=== PATIENT | male | born 1960 | race Hispanic/Latino ===

== ENCOUNTER 2020-10-30 07:40 | Emergency (ER) | payer SELFPAY ==
--- NOTE | ~2020-10-30 | CT_ITS ---
EXAMINATION: CT abdomen pelvis w con DATE: 10/30/2020 08:37 INDICATION: Nausea, vomiting and diarrhea TECHNIQUE: Computed tomography (CT) of the abdomen and pelvis was performed with 100 cc Omnipaque 350 intravenous contrast. The dose-length product was 589.02 mGy-cm. Automated exposure control and iter ative reconstruction technique were employed. COMPARISON: None. FINDINGS: Lung bases are unremarkable. No significant pleural or pericardial effusion. No significant vascular abnormality. No lymphadenopathy. Fatty infiltration of the liver. The spleen, pancreas, adrenal glands and kidneys are unremarkable. S tudy limited by motion artifact. Gallbladder is present. Nonobstructive bowel gas pattern. There is d iffuse thickening of the colon, consistent with colitis, most likely infectious or inflammatory. Ther e is mild thickening and enhancement of the appendix which measures 9 mm. No significant periappendic eal infiltration. No free air or free fluid. IMPRESSION: 1. Diffuse abnormal thickening and enhancement of the colon, compatible with colitis, most likely inf ectious/inflammatory. Mildly thickened enhancing appendix is likely related to same etiology. No sign ificant surrounding periappendiceal inflammation is identified. 2: Hepatic steatosis. Reviewed, dictated and finalized at location B. IMPRESSION: 1. Diffuse abnormal thickening and enhancement of the colon, compatible with co litis, most likely infectious/inflammatory. Mildly thickened enhancing appendix is likely related to same etiology. No significant surrounding periappendiceal inflammation is identified. 2: Hepatic steatosis.
[2020-10-30 07:47] VITALS: BP 132/77; PULSE 98; RESP 18; TEMP 37.4; O2SAT 94
--- NOTE | 2020-10-30 08:05 | PC.NURSE ---
asked pt for urine sample and pt states he is unable to go right now and will try in a little bit.
[2020-10-30 08:07] LABS: Basophils Percent Auto 0.2 % (0.2-1.2); Eosinophils Percent Auto 0.3 % (0-4.4); Hematocrit 47.3 % (42.0-52.0); Hemoglobin 16.1 g/dL (14.0-18.0); Immature Granulocyte Absolute 0.07 K/mm3 (0.00-0.031); Immature Granulocyte Percent A 0.6 % (0-0.5); Lymphocytes Absolute Auto 1.39 K/mm3 (0.9-3.2); Lymphocytes Percent Auto 11.2 % (18.3-44.2); Mean Corpuscular Hemoglobin 32.7 pg (26-34); Mean Corpuscular Volume 96.1 fl (80-100); Mean Platelet Volume 9.5 fl (7.4-10.4); Monocytes Absolute Auto 0.6 K/mm3 (0.1-0.6); Monocytes Percent Auto 4.9 % (2.6-8.5); Neutrophils Absolute Auto 10.2 K/mm3 (1.3-6.7); Neutrophils Percent Auto 82.8 % (45.5-73.1); Platelet Count Result 212 k/mm3 (150-375); Red Blood Count 4.92 M/mm3 (4.6-6.20); White Blood Count 12.4 K/mm3 (4.5-10.0)
--- NOTE | 2020-10-30 08:15 | ED.NAVMDI ---
HPI - Nausea/Vomiting/Diarrhea General Chief complaint: Nausea/Vomiting/Diarrhea Stated complaint: vomiting, diarrhea Time Seen by Provider: 10/30/20 08:15 Source: patient, family and RN notes reviewed Mode of arrival: ambulatory Limitations: no limitations History of Present Illness HPI Narrative: Patient is 60 years old male brought to the emergency room by his and his daughter. The daughter speaks Bruneian. Is telling me that the patient been having nausea, vomiting and diarrhea since last night, on average 10 episodes each. She denies anybody else having similar symptoms. Patient did not get vaccinated for COVID-19 yet. Patient does not take medication at home, does not smoke or drink or uses drugs. She is telling me also that patient have some slight upper abdominal pain with vomiting Related Data Allergies Allergy/AdvReac Type Severity Reaction Status Date / Time No Known Allergies Allergy Verified 10/30/20 08:06 Review of Systems Review of Systems: Narrative: CONSTITUTIONAL: Denies fever, chills, or sweats. EYES: Denies visual changes, redness, or discharge. ENT: Denies rhinorrhea, congestion, sore throat, or otalgia. CARDIOVASCULAR: Denies chest pain, palpitations, or edema. RESPIRATORY: Denies cough or dyspnea. GASTROINTESTINAL: Denies abdominal pain, nausea, vomiting, or diarrhea. GENITOURINARY: Denies dysuria or hematuria. SKIN: Denies rash or itching. MUSCULOSKELETAL: Denies back pain, joint pain, or myalgia. NEUROLOGIC: Denies headache, numbness, or weakness. PSYCHIATRIC: Denies anxiety or depression. Exam Narrative: Exam Narrative: General appearance: Well-developed, well-nourished Skin: Normal color Head: Normocephalic, nontraumatic Eyes: Clear conjunctiva ENT: Oropharynx normal, ears normal, nose normal Neck: Supple, nontender Chest and respiratory: Airway patent, no respiratory distress, no accessory muscle use Heart: Regular rate/rhythm Abdomen: Soft, mild epigastric tenderness,, no organomegaly, quiet bowel sounds Vascular: Normal peripheral pulses, normal capillary refill. 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 Date: 10/30/20 Time: 11:28 Vital Signs Vital signs: Vital Signs Temperature 37.4 C 10/30/20 07:47 Pulse Rate 98 10/30/20 07:47 Respiratory Rate 18 10/30/20 07:47 Blood Pressure 132/77 10/30/20 07:47 Pulse Oximetry 94 10/30/20 07:47 Temperature 37.4 C 10/30/20 07:47 Pulse Rate 77 10/30/20 10:13 Respiratory Rate 16 10/30/20 10:13 Blood Pressure 118/74 10/30/20 10:13 Pulse Oximetry 100 10/30/20 10:13 MDM - Nausea/Vomiting/Diarrhea MDM Narrative Medical decision making narrative: Gastroenteritis is my concern. Labs, IV fluid, CT abdomen and pelvis with IV contrast ordered. Differential Diagnosis Differential diagnosis: Likely food poisoning, gastroenteritis and dehydration Lab Data Result diagrams: 10/30/20 07:59 10/30/20 07:59 Labs: Lab Results 10/30/20 10/30/20 10/30/20 Range/Units 07:59 07:59 08:43 WBC 12.4 H (4.5-10.0) K/mm3 RBC 4.92 (4.6-6.20) M/mm3 Hgb 16.1 (14.0-18.0) g/dL Hct 47.3 (42.0-52.0) % MCV 96.1 (80-100) fl MCH 32.7 (26-34) pg MCHC 34.0 (32-36) g/dl RDW 13.0 (11.5-14.5) % Plt Count 212 (150-375) k/mm3 MPV 9.5 (7.4-10.4) fl Immature Gran % (Auto) 0.6 H (0-0.5) % Neut % (Auto) 82.8 H (45.5-73.1) % Lymph % (Auto) 11.2 L (18.3-44.2)
[2020-10-30 08:18] LABS: Alanine Aminotransferase 113 U/L (4-50); Albumin Level 4.5 g/dL (3.5-5.1); Alkaline Phosphatase 113 U/L (38-126); Anion Gap 10 mmol/L (8-16); Aspartate Amino Transferase 98 U/L (17-59); Bilirubin,Total 1.4 mg/dL (0.2-1.3); Blood Urea Nitrogen 13 mg/dL (9-20); Calcium 9.4 mg/dL (8.4-10.2); Carbon Dioxide 24 mmol/L (22-30); Chloride 108 mmol/L (98-107); Estimated CRCL calculation 57 ml/min; Estimated Glomerular Filt Rate > 60; Glucose 149 mg/dL (75-110); Lipase 98 U/L (23-300); Potassium 3.5 mmol/L (3.4-5.0); Sodium 142 mmol/L (137-145)
[2020-10-30] MEDS: SODIUM CHLORIDE 0.9% IV 1,000 ML 999 ML IV CONT ×2 (08:41)
[2020-10-30] MEDS: ONDANSETRON INJ 4 MG/2 ML VIAL IV PUSH (08:41)
[2020-10-30 08:49] VITALS: BP 124/72; PULSE 87; RESP 15; O2SAT 99
[2020-10-30 08:56] LABS: Add Urine Microscopic? YES; Appearance Urine Cloudy (Clear); Bilirubin Urine Negative (Negative); Blood Urine 1+ (Negative); Color Urine Amber (Yellow); Glucose Urine UA Negative (Negative); Ketones Urine Negative (Negative); Leukocyte Esterase Ur Negative LEU/UL (Negative); Mucus Urine Heavy /lpf; Nitrate Urine Negative (Negative); Protein Urine 2+ mg/dL (Negative); Specific Grav Ur 1.027 (1.001-1.035); Squamous Epithelial Cell Urine Occasional /hpf (Few); Urobilinogen Urine Negative mg/dL (<2.0)
[2020-10-30 10:13] VITALS: BP 118/74; PULSE 77; RESP 16; O2SAT 100
[2020-10-30 11:15] VITALS: BP 120/75; PULSE 82; RESP 16; O2SAT 100
--- NOTE | 2020-10-30 11:16 | PC.NURSE ---
PO challenged pt and pt was able to keep water down.
[2020-10-30 11:41] VITALS: BP 115/78; PULSE 74; RESP 18; O2SAT 100
== END 2020-10-30 11:46 | disposition home or self-care (01) ==
PROVIDERS: Emergency Provider Emergency Medicine
DX: K52.9 Noninfective gastroenteritis and colitis, unspecified (principal)
CPT/HCPCS: 36415; 74177; 80053; 81001; 83690; 85025; 87086; 87088; 96361; 96374; 99284; J2405; J7030; Q9967

== ENCOUNTER 2022-08-20 18:04 | Emergency (ER) | payer MEDICAID, SELFPAY ==
[2022-08-20] VITALS (22 sets, daily range): BP systolic 101–124; BP diastolic 60–100; PULSE 59–75; RESP 9–21; TEMP 36.6; O2SAT 94–100
--- NOTE | ~2022-08-20 | XR_ITS ---
EXAMINATION: XR chest 2V DATE: 08/20/2022 19:13 INDICATION: Weakness TECHNIQUE: Frontal and lateral views of the chest are obtained COMPARISON: None available FINDINGS: The lungs are free of acute opacities. No pleural effusion or pneumothorax. The cardiomedia stinal silhouette is normal. There is moderate thoracic spondylosis. IMPRESSION: 1. No acute cardiopulmonary abnormality. Reviewed, dictated and finalized at location F.
--- NOTE | 2022-08-20 18:19 | ECG_ITS ---
Measurements Intervals [place] Rate: 72 P: 26 [place]: 196 QRS: -16 QRSD: 86 T: 13 QT: 383 QTc: 419 Interpretive Statements SINUS RHYTHM VOLTAGE CRITERIA FOR LVH [MEETS CRITERIA IN ONE OF: R(aVL), S(V1), R(V5), R(V5/V6)+S(V1)] NO PREVIOUS ECG AVAILABLE FOR COMPARISON Electronically Signed On 08-21-2022 22:10:37 CDT by Ninfa Caballero M.D.
[2022-08-20 18:35] LABS: Basophils Percent Auto 0.8 % (0.2-1.2); Eosinophils Absolute Auto 0.1 K/mm3 (0-0.3); Eosinophils Percent Auto 1.2 % (0-4.4); Hematocrit 41.3 % (42.0-52.0); Hemoglobin 14.3 g/dL (14.0-18.0); Immature Granulocyte Absolute 0.01 K/mm3 (0.00-0.031); Immature Granulocyte Percent A 0.2 % (0-0.5); Lymphocytes Absolute Auto 2.17 K/mm3 (0.9-3.2); Lymphocytes Percent Auto 42.8 % (18.3-44.2); Mean Corpuscular HGB Conc 34.6 g/dl (32-36); Mean Corpuscular Hemoglobin 33.3 pg (26-34); Mean Platelet Volume 11.1 fl (7.4-10.4); Monocytes Absolute Auto 0.4 K/mm3 (0.1-0.6); Monocytes Percent Auto 8.1 % (2.6-8.5); Neutrophils Absolute Auto 2.4 K/mm3 (1.3-6.7); Neutrophils Percent Auto 46.9 % (45.5-73.1); Platelet Count Result 170 k/mm3 (150-375); Red Cell Distribution Width 12.6 % (11.5-14.5); White Blood Count 5.1 K/mm3 (4.5-10.0)
[2022-08-20 18:53] LABS: Alanine Aminotransferase 134 U/L (6-50); Albumin Level 4.2 g/dL (3.5-5.1); Alkaline Phosphatase 274 U/L (38-126); Anion Gap 9 mmol/L (8-16); Aspartate Amino Transferase 107 U/L (17-59); Bilirubin,Total 1.4 mg/dL (0.2-1.3); Blood Urea Nitrogen 14 mg/dL (9-20); Calcium 8.5 mg/dL (8.4-10.2); Carbon Dioxide 26 mmol/L (22-30); Chloride 97 mmol/L (98-107); Estimated Glomerular Filt Rate > 60; Potassium 4.4 mmol/L (3.4-5.0); Sodium 132 mmol/L (137-145)
[2022-08-20 19:00] LABS: Glucose 653 mg/dL (65-110)
[2022-08-20 19:06] LABS: Appearance Urine Clear (Clear); Bilirubin Urine Negative (Negative); Blood Urine Negative (Negative); Color Urine Yellow (Yellow); Glucose Urine UA 3+ mg/dL (Negative); Ketones Urine Negative (Negative); Leukocyte Esterase Ur Negative LEU/UL (Negative); Nitrate Urine Negative (Negative); Protein Urine Negative (Negative); Urobilinogen Urine 0.2 mg/dL (<2.0)
[2022-08-20 19:08] LABS: Specific Grav Ur 1.039 (1.001-1.035)
[2022-08-20 19:09] LABS: Add Urine Microscopic? NO
--- NOTE | 2022-08-20 19:41 | PC.NURSE ---
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 Patient states he has had increased thirst, hunger, and urination for about eleven days. Patient states he also has heart burn when eating his normal spicy foods at home. Increased incontinence as well.
[2022-08-20] MEDS: SODIUM CHLORIDE 0.9% IV 1,000 ML 999 ML IV CONT ×2 (20:51→20:52)
--- NOTE | 2022-08-20 21:09 | ED.GENADULT ---
HPI - General Adult General Chief complaint: Weakness Stated complaint: abd pain Time Seen by Provider: 08/20/22 20:23 History of Present Illness HPI narrative: Patient 62-year-old gentleman who presents emergency department with chief complaint of polyuria polydipsia and decreased appetite. The patient reports that he has been thirsty all the time he has had urination has been frequent and reports that he is not really wanted to eat much. The patient states he feels just generally unwell and weak. Patient reports no prior medical issues patient denies fever denies vomiting denies abdominal pain. Related Data Allergies Allergy/AdvReac Type Severity Reaction Status Date / Time No Known Allergies Allergy Verified 10/30/20 08:06 Review of Systems Review of Systems: A 10 system review of systems was completed on the patient and is negative except for what is stated in the HPI. Nursing and ancillary documentation was reviewed. Exam Narrative: GENERAL: Well-appearing, well-nourished, and in no acute distress. HEAD: Normocephalic, atraumatic. EYES: PERRLA and EOMI. ENT: Nares clear, no rhinorrhea or epistaxis. Mucous membranes moist. NECK: Supple. CHEST: Clear to auscultation. No respiratory distress. HEART: Regular rate and rhythm. No murmur heard. Normal peripheral pulses. ABDOMEN: Soft, nontender, nondistended, normal active bowel sounds. EXTREMITIES: Normal range of motion. No edema. SKIN: Warm, dry, no rash. NEURO: No focal deficits. Alert and oriented x3. PSYCH: Normal mood and affect. Course Vital Signs Vital signs: Vital Signs Temperature 36.6 C 08/20/22 18:14 Pulse Rate 75 08/20/22 18:14 Respiratory Rate 16 08/20/22 18:14 Blood Pressure 118/70 08/20/22 18:14 Pulse Oximetry 97 08/20/22 18:14 Temperature 36.6 C 08/20/22 18:14 Pulse Rate 61 08/20/22 22:00 Respiratory Rate 19 08/20/22 22:00 Blood Pressure 101/77 08/20/22 21:16 Pulse Oximetry 98 08/20/22 22:00 Medical Decision Making [facility] Narrative Medical decision making narrative: Differential diagnosis includes diabetes, dehydration, diabetic ketoacidosis. Laboratory studies were obtained which showed normal CBC electrolytes showed a blood sugar of 653 there was no anion gap was 9 CO2 is 26. Patient received 2 L of normal saline and blood sugar came down into the 200s. Chest x-ray showed no evidence of focal infiltrate Patient is feeling much better after receiving IV fluids Patient will be started on metformin Vital Signs Vital Signs: Vital Signs Temperature 36.6 C 08/20/22 18:14 Pulse Rate 75 08/20/22 18:14 Respiratory Rate 16 08/20/22 18:14 Blood Pressure 118/70 08/20/22 18:14 Pulse Oximetry 97 08/20/22 18:14 Temperature 36.6 C 08/20/22 18:14 Pulse Rate 61 08/20/22 22:00 Respiratory Rate 19 08/20/22 22:00 Blood Pressure 101/77 08/20/22 21:16 Pulse Oximetry 98 08/20/22 22:00 Lab Data 08/20/22 18:25 08/20/22 18:25 Labs: Lab Results 08/20/22 08/20/22 08/20/22 Range/Units 18:25 18:25 18:28 WBC 5.1 (4.5-10.0) K/mm3 RBC 4.30 L (4.6-6.20) M/mm3 Hgb 14.3 (14.0-18.0) g/dL Hct 41.3 L (42.0-52.0) % MCV 96.0 (80-100) fl MCH 33.3 (26-34) pg MCHC 34.6 (32-36) g/dl RDW 12.6 (11.5-14.5) % Plt Count 170 (150-375) k/mm3 MPV 11.1 H (7.4-10.4) fl Immature Gran % (Auto) 0.2 (0-0.5) % Neut % (Auto) 46.9 (45.5-73.1) % Lymph % (Auto) 42.8 (18.3-44.2) % [place] % (Auto) 8.1 (2.6-8.5) % Eos % (Auto) 1.2 (0-4.4) % Baso % (Auto) 0.8 (0.2-1.2) % Lymph # (Auto) 2.17 (0.9-3.2) K/mm3 [place] # (Auto) 0.4 (0.1-0.6) K/mm3 Eos # (Auto) 0.1 (0-0.3) K/mm3 Baso # (Auto) 0.0 (0.0-0.1) K/mm3 Abs Immat Gran (auto) 0.01 (0.00-0.031) K/mm3 Absolute Neuts (auto) 2.4 (1.3-6.7) K/mm3 Absolute Nucleated RBC 0.0 (0.0-0.012) K/mm3 Nucleated RBC % 0.0
[2022-08-20 22:07] LABS: Glucose Point of Care 244 mg/dl (65-105)
== END 2022-08-20 23:04 | disposition home or self-care (01) ==
PROVIDERS: Emergency Medicine; Emergency Provider Emergency Medicine
DX: E11.65 Type 2 diabetes mellitus with hyperglycemia (principal)
CPT/HCPCS: 36415; 71046; 80053; 81003; 82948; 85025; 93005; 96360; 96361; 99283; J7030

== ENCOUNTER 2024-11-05 21:13 | Emergency (ER) | payer SELFPAY ==
--- NOTE | ~2024-11-05 | CT_ITS ---
CT of the Abdomen and Pelvis: Indication: Urinary frequency, weakness, transaminitis Technique: 2.5 mm axial scans were obtained through the abdomen and pelvis following intravenous adm inistration of 100 cc of Omnipaque 350. Dose reduction technique was used on this scan by utilizing a utomated exposure control and iterative reconstruction technique. The dose-length product (DLP) was 5 51.70 mGy-cm. Findings: Scans through the lung bases are unremarkable. There is diffuse hepatic steatosis. The spleen, pancreas, gallbladder, adrenals and kidneys are withi n normal limits. No evidence of aortic aneurysm. No lymphadenopathy. No bowel obstruction or bowel wall thickening. There is no evidence to suggest acute appendicitis. Images through the pelvis were performed. Urinary bladder unremarkable. Prostate gland is enlarged. N o ascites. Impression: Diffuse hepatic steatosis. Enlarged prostate gland. Reviewed, dictated and finalized at location . Impression: Diffuse hepatic steatosis. Enlarged prostate gland.
[2024-11-05 21:19] VITALS: BP 131/78; PULSE 71; RESP 18; TEMP 36.6; O2SAT 98
[2024-11-06] VITALS (23 sets, daily range): BP systolic 101–122; BP diastolic 72–85; PULSE 51–62; RESP 12–25; TEMP 36.5; O2SAT 96–100
[2024-11-06 00:33] LABS: Alanine Aminotransferase 174 U/L (6-50); Albumin Level 4.4 g/dL (3.5-5.1); Alkaline Phosphatase 154 U/L (38-126); Anion Gap 10 mmol/L (4-12); Aspartate Amino Transferase 140 U/L (17-59); Bilirubin,Total 1.3 mg/dL (0.2-1.3); Blood Urea Nitrogen 14 mg/dL (9-20); Calcium 9.3 mg/dL (8.4-10.2); Carbon Dioxide 25 mmol/L (22-30); Chloride 104 mmol/L (98-107); Estimated Glomerular Filt Rate > 60; Glucose 347 mg/dL (65-110); Magnesium 2.2 mg/dL (1.6-2.3); Potassium 4.0 mmol/L (3.4-5.0); Sodium 139 mmol/L (137-145); Total Protein 8.2 g/dL (6.3-8.2)
--- NOTE | 2024-11-06 00:50 | ED.RECABL ---
HPI - Recheck/Abnormal Lab/Rx General Chief Complaint: Recheck/Abnormal Lab/Rx Stated Complaint: Diabetic-urinary frequency-x 1 week, doesn't check Time Seen by Provider: 11/06/24 00:09 Source: patient and family Mode of arrival: ambulatory Limitations: language barrier ([place]alan; Clinical Pharmacy Specialist Raman #[id number]) History of Present Illness HPI narrative: Patient presents with complaint of increased urinary frequency 1 week's duration. He denies any abdominal pain. He denies any nausea. He has not seen a urologist. He reports that he has Type 1 diabetes mellitus but is not chronically on insulin. States he was given a prescription for insulin last time he was here, approximately 1 year ago but was a 1 supply ran out 10 was never refilled. He does not a primary care physician. Denies drinking alcohol regularly does state that 1 week ago he drank 5 beers. He reports that he has been losing weight and feeling weak. No prior abdominal surgeries. Does not believe he has ever been in DKA. States he has not been able to eat or drink because of the increased urinary frequency. Interpretive services are used though much of history is provided by daughter; I suspect patient himself speaks a dialect that is different than the translator/interpreter. Related Data Allergies Allergy/AdvReac Type Severity Reaction Status Date / Time No Known Allergies Allergy Verified 11/05/24 21:15 [facility] Past Medical History Medical History Diabetes mellitus Patient reports Type 1 but not on insulin Social History Social History Alcohol intake: current Alcohol use details: occasional Exam Narrative: GENERAL: Well-appearing, well-nourished, and in no acute distress. HEAD: Normocephalic, atraumatic. EYES: Non injected, non icteric ENT: Nares clear, no rhinorrhea or epistaxis. Gross auditory acuity intact. NECK: Supple. No meningismus. CHEST: Speaking in full sentences. No respiratory distress. HEART: Regular rate and rhythm. . ABDOMEN: Soft, nondistended. EXTREMITIES: Normal range of motion. No lower extremity edema. SKIN: Warm, dry, no rash. NEURO: No focal deficits. Alert and oriented. Answering questions. Following commands. PSYCH: Congruent mood and affect. Course Vital Signs Vital signs: Vital Signs Temperature 98 F 11/05/24 21:19 Pulse Rate 71 11/05/24 21:19 Respiratory Rate 18 11/05/24 21:19 Blood Pressure 131/78 11/05/24 21:19 Pulse Oximetry 98 11/05/24 21:19 Oxygen Delivery Room Air 11/05/24 21:19 Temperature 97.7 F 11/06/24 04:46 Pulse Rate 61 11/06/24 04:46 Respiratory Rate 15 11/06/24 04:46 Blood Pressure 122/85 11/06/24 04:46 Pulse Oximetry 100 11/06/24 04:46 Oxygen Delivery Room Air 11/05/24 21:19 MDM - Recheck/Abnormal Lab/Rx MDM Narrative Medical decision making narrative: Patient presents with report of increased urinary frequency 1 week's duration. He notes that he is unable to eat or drink because of this and he believes he is losing weight and feeling weak as a result. He reports that he has type 1 diabetes mellitus but is not on insulin and has not been on insulin for 1 year thus I suspect this to not be true. Does not have a primary care physician. In the emergency department they are afebrile with vital signs within normal limits. Point of care glucose 451 mg/dL in triage. He has hyperglycemia without anion gap acidosis. 1L IV fluids ordered. His LFTs are elevated in the 100s, seen previously. Normal renal function and no marked electrolyte abnormalities. Beta hydroxybutyrate normal. Glucosuria. Mildly elevated CPK but not to a degree to suggest acute rhabdomyolysis. Workup generally unremarkable. Stable for discharge with outpatient follow-up. Provided referral contact information for primary care as well as Urology. Differential Diagnosis Differential diagnosis: Likely other (Hyperglycemia, DKA; HHS; UTI; rhabdomyolysis; acute viral syndrome; BPH) Lab Data Attestation: I reviewed the patient's lab results. Lab results narrative: No leukocytosis, anemia, thrombocytopenia 11/06/24 00:17 11/06/24 00:17 Labs: Lab Results 11/05/24 11/06/24 11/06/24 Range/Units 21:25 00:14 00:17 WBC 6.5 (4.5-10.0) K/mm3 RBC 4.56 L (4.6-6.20) M/mm3 Hgb 15.0 (14.0-18.0) g/dL Hct 44.1 (42.0-52.0) % MCV 96.7 (80-100) fl MCH 32.9 (26-34) pg MCHC 34.0 (32-36) g/dl RDW 12.6 (11.5-14.5) % Plt Count 194 (150-375) k/mm3 MPV 10.5 H (7.4-10.4) fl Immature Gran % (Auto) 0.5 (0-0.5) % Neut % (Auto) 36.6 L (45.5-73.1) % Lymph % (Auto) 51.0 H (18.3-44.2) % [place] % (Auto) 7.9 (2.6-8.5) % Eos % (Auto) 3.1 (0-4.4) % Baso % (Auto) 0.9 (0.2-1.2) % Lymph # (Auto) 3.29 H (0.9-3.2) K/mm3 [place] # (Auto) 0.5 (0.1-0.6) K/mm3 Eos # (Auto) 0.2 (0-0.3) K/mm3 Baso # (Auto) 0.1 (0.0-0.1) K/mm3 Abs Immat Gran (auto) 0.03 (0.00-0.031) K/mm3 Absolute Neuts (auto) 2.4 (1.3-6.7) K/mm3 Absolute Nucleated RBC 0.000 (0.0-0.012) K/mm3 Nucleated RBC % 0.0 (0.0-0.2) % PT 14.5 (11.1-14.7) Seconds INR 1.1 APTT 31.7 (22.3-36.8) Seconds Sodium 139 (137-145) mmol/L Potassium 4.0 (3.4-5.0) mmol/L Chloride 104 (98-107) mmol/L Carbon Dioxide 25 (22-30) mmol/L Anion Gap 10 (4-12) mmol/L BUN 14 (9-20) mg/dL Creatinine 0.71 (0.7-1.3) mg/dL Estim Creat Clear Calc Not Reportable Estimated GFR > 60 (59 - ) Glucose 347 H (65-110) mg/dL POC Capillary Glucose 451 H (65-105) mg/dl Calcium 9.3 (8.4-10.2) mg/dL Phosphorus 3.0 (2.5-4.5) mg/dL Magnesium 2.2 (1.6-2.3) mg/dL Total Bilirubin 1.3 (0.2-1.3) mg/dL AST 140 H (17-59) U/L ALT 174 H (6-50) U/L Alkaline Phosphatase 154 H (38-126) U/L Total Creatine Kinase 249 H (55-170) U/L Total Protein 8.2 (6.3-8.2) g/dL Albumin 4.4 (3.5-5.1) g/dL Lipase 155 (23-300) U/L Beta-Hydroxybutyrate/Acetoacetate 0.12 (0.02-0.27) mmol/L TSH 2.610 (0.465-4.680) uIU/mL Urine Color (Yellow) Urine Appearance (Clear) Urine pH (5.0-9.0) Ur Specific [place] (1.001-1.035) Urine Protein (Negative) mg/dL Urine Glucose (UA) (Negative) mg/dL Urine Ketones (Negative) mg/dL Ur Blood (Man) (Negative) Urine Nitrate (Negative) Urine Bilirubin (Negative) Urine Urobilinogen (<2.0) mg/dL Leukocyte Esterase Rfl (Negative) ROMAN/UL Influenza A (RT-PCR) (Negative) Influenza B (RT-PCR) (Negative) RSV (RT-PCR) (Negative) SARS-CoV-2 RNA (RT-PCR) (Negative) 11/06/24 11/06/24 Range/Units 01:00 01:17 WBC (4.5-10.0) K/mm3 RBC (4.6-6.20) M/mm3 Hgb (14.0-18.0) g/dL Hct (42.0-52.0) % MCV (80-100) fl MCH (26-34) pg MCHC (32-36) g/dl RDW (11.5-14.5) % Plt Count (150-375) k/mm3 MPV (7.4-10.4) fl Immature Gran % (Auto) (0-0.5) % Neut % (Auto) (45.5-73.1) % Lymph % (Auto) (18.3-44.2) % [place] % (Auto) (2.6-8.5) % Eos % (Auto) (0-4.4) % Baso % (Auto) (0.2-1.2) % Lymph # (Auto) (0.9-3.2) K/mm3 [place] # (Auto) (0.1-0.6) K/mm3 Eos # (Auto) (0-0.3) K/mm3 Baso # (Auto) (0.0-0.1) K/mm3 Abs Immat Gran (auto) (0.00-0.031) K/mm3 Absolute Neuts (auto) (1.3-6.7) K/mm3 Absolute Nucleated RBC (0.0-0.012) K/mm3 Nucleated RBC % (0.0-0.2) % PT (11.1-14.7) Seconds INR APTT (22.3-36.8) Seconds Sodium (137-145) mmol/L Potassium (3.4-5.0) mmol/L Chloride (98-107) mmol/L Carbon Dioxide (22-30) mmol/L Anion Gap (4-12) mmol/L BUN (9-20) mg/dL Creatinine (0.7-1.3) mg/dL Estim Creat Clear Calc Estimated GFR (59 - ) Glucose (65-110) mg/dL POC Capillary Glucose (65-105) mg/dl Calcium (8.4-10.2) mg/dL Phosphorus (2.5-4.5) mg/dL Magnesium (1.6-2.3) mg/dL Total Bilirubin (0.2-1.3) mg/dL AST (17-59) U/L ALT (6-50) U/L Alkaline Phosphatase (38-126) U/L Total Creatine Kinase (55-170) U/L Total Protein (6.3-8.2) g/dL Albumin (3.5-5.1) g/dL Lipase (23-300) U/L Beta-Hydroxybutyrate/Acetoacetate (0.02-0.27) mmol/L TSH (0.465-4.680) uIU/mL Urine Color Yellow (Yellow) Urine Appearance Clear (Clear) Urine pH 6.5 (5.0-9.0) Ur Specific [place] 1.039 H (1.001-1.035) Urine Protein Negative (Negative) mg/dL Urine Glucose (UA) 3+ H (Negative) mg/dL Urine Ketones Negative (Negative) mg/dL Ur Blood (Man) Negative (Negative) Urine Nitrate Negative (Negative) Urine Bilirubin Negative (Negative) Urine Urobilinogen 1.0 (<2.0) mg/dL Leukocyte Esterase Rfl Negative (Negative) ROMAN/UL Influenza A (RT-PCR) Negative (Negative) Influenza B (RT-PCR) Negative (Negative) RSV (RT-PCR) Negative (Negative) SARS-CoV-2 RNA (RT-PCR) Negative (Negative) Imaging Data Radiologist's impression: CT Abd & PElvis with contrast Stat Rad: Diffuse respiratory artifact. Accounting for limitations, the kidneys demonstrate normal enhancement without definite pyelonephritis. No hydronephrosis or nephrolithiasis. No ureterectasis or ureteral stones. Bladder is unremarkable. No bladder stones. No bowel obstruction. No obvious asymmetric bowel mucosal abnormality. Mild stool burden. The appendix is stable in appearance from the previous examination dated 10/30/2020. No obvious periappendiceal inflammatory changes. Similar hepatic steatosis. The gallbladder, pancreas, spleen and adrenal glands are unremarkable. Incidental findings: Prosthetic hypertrophy. Discharge Plan Discharge Clinical Impression: Hyperglycemia due to type 1 diabetes mellitus, Transaminitis, Increased urinary frequency, Glucosuria, Hepatic steatosis, Generalized weakness Patient Disposition: Home Condition: Stable Instructions: Antibiotic Form, Non-Alcoholic Fatty Liver Disease (ED), Diabetic Hyperglycemia (ED), Urinary Urgency and Frequency (DC), Transaminitis (ED) Additional Instructions: No emergent cause of your symptoms has been identified. Your blood sugar was high but not in a dangerous condition requiring admission. Your TSH (thyroid level) was normal as were nearly all of your other labs. It is important that you follow-up with a primary care physician to help manage your diabetes. Because you do not have a primary care physician, the name of a doctors listed below. Alternatively, there is a provider that speaks [place]alan if you prefer though I do not know if they are accepting patients. Her name is Amberly Dan ([phone]). For the urinary frequency, you can follow-up with the urologist listed below. Patient Language: [place]alan Prescriptions: No Action levofloxacin 750 mg tablet 750 mg PO DAILY Qty: 7 5RF metronidazole [Flagyl] 500 mg tablet 500 mg PO Q8H Qty: 21 0RF metformin 500 mg tablet 500 mg PO BID Qty: 60 1RF Follow-up/Referrals: Ernesto Trevino MD [Physician] - (urology) Cristobal Morocho MD [Physician] - (primary care physician) PHYSICIAN,PIT WORK[employer] [Primary Care Provider] - Stand Alone Forms: Work/School Release IP Time of Disposition: 04:23
[2024-11-06] MEDS: SODIUM CHLORIDE 0.9% IV 1,000 ML 999 ML IV CONT (00:59)
[2024-11-06 01:09] LABS: Lipase 155 U/L (23-300)
[2024-11-06 01:13] LABS: Beta-Hydroxybutyrate/Acetoacetate 0.12 mmol/L (0.02-0.27)
[2024-11-06 01:13] LABS: Add Urine Microscopic? NO; Appearance Urine Clear (Clear); Glucose Urine UA 3+ mg/dL (Negative); Leukocyte Esterase Ur Negative LEU/UL (Negative); Nitrate Urine Negative (Negative); Specific Grav Ur 1.039 (1.001-1.035)
[2024-11-06 01:18] LABS: Hematocrit 44.1 % (42.0-52.0); Hemoglobin 15.0 g/dL (14.0-18.0); Immature Granulocyte Percent A 0.5 % (0-0.5); Lymphocytes Absolute Auto 3.29 K/mm3 (0.9-3.2); Mean Corpuscular HGB Conc 34.0 g/dl (32-36); Mean Corpuscular Hemoglobin 32.9 pg (26-34); Mean Corpuscular Volume 96.7 fl (80-100); Nucleated Red Blood Cells Absolute Auto 0.000 K/mm3 (0.0-0.012); Nucleated Red Blood Cells Perc 0.0 % (0.0-0.2); Platelet Count Result 194 k/mm3 (150-375); Red Blood Count 4.56 M/mm3 (4.6-6.20); White Blood Count 6.5 K/mm3 (4.5-10.0)
[2024-11-06 01:25] LABS: Creatine Kinase 249 U/L (55-170)
[2024-11-06 01:37] LABS: INR 1.1; Prothrombin Time 14.5 Seconds (11.1-14.7)
[2024-11-06 01:38] LABS: Partial Thromboplastin Time 31.7 Seconds (22.3-36.8)
[2024-11-06 02:00] LABS: Influenza A QL RT-PCR Negative (Negative); Influenza B QL RT-PCR Negative (Negative); RSV RNA, RT-PCR. Negative (Negative); SARS-CoV-2 RNA PCR Negative (Negative)
[2024-11-06 02:07] LABS: Thyroid Stimulating Hormone 2.610 uIU/mL (0.465-4.680)
--- NOTE | 2024-11-06 04:46 | PC.NURSE ---
edp meza at bedside to update family and patient to pt results/status.
== END 2024-11-06 04:47 | disposition home or self-care (01) ==
PROVIDERS: Emergency Provider Student in an Organized Health Care Education/Training Program
DX: E10.65 Type 1 diabetes mellitus with hyperglycemia (principal); R74.01 Elevation of levels of liver transaminase levels; R35.0 Frequency of micturition; K76.0 Fatty (change of) liver, not elsewhere classified; R53.1 Weakness; R81 Glycosuria; Z20.822 Contact with and (suspected) exposure to COVID-19; T38.3X6A Underdosing of insulin and oral hypoglycemic [antidiabetic] drugs, initial encounter; Z91.148 Patient's other noncompliance with medication regimen for other reason
CPT/HCPCS: 36415; 74177; 80053; 81003; 82010; 82550; 82948; 83690; 83735; 84100; 84443; 85025; 85610; 85730; 87637; 96360; 99284; J7030; Q9967